=== PATIENT | male | born 1970 | race Hispanic/Latino ===

== ENCOUNTER 2022-06-24 09:14 | Outpatient (CLI) | payer BC | END 2022-06-24 09:15 | disposition home or self-care (01) | LOC: CSHWCC 09:14 | PROVIDERS: ATTEND Nurse Practitioner Family | DX: L98.499 Non-pressure chronic ulcer of skin of other sites with unspecified severity (principal) ==

== ENCOUNTER 2022-07-01 09:57 | Outpatient (CLI) | payer BC | END 2022-07-01 09:58 | disposition home or self-care (01) | LOC: CSHWCC 09:57 | PROVIDERS: ATTEND Nurse Practitioner Family | DX: L98.499 Non-pressure chronic ulcer of skin of other sites with unspecified severity (principal) ==

== ENCOUNTER 2022-07-15 09:33 | Outpatient (CLI) | payer BC | END 2022-07-15 09:34 | disposition home or self-care (01) | LOC: CSHWCC 09:33 | PROVIDERS: ATTEND Nurse Practitioner Family | DX: L98.499 Non-pressure chronic ulcer of skin of other sites with unspecified severity (principal) | CPT/HCPCS: 99212; G0463 ==